=== PATIENT | male | born 1990 | race Caucasian/White ===

== ENCOUNTER 2017-10-27 05:15 | Emergency (ER) | payer OTHER ==
[~2017-10-27 05:15] MED LIST: BACTRIM,SEPT1 TABLET PO; BP Medication PO; FLEXERIL10 MG PO; MOTRIN800 MG PO; NAPROSYN500 MG PO; NAPROXEN250 MG PO; ULTRACET1 TABLET PO; [UNRECOGNIZED DRUG - OTHER]
[2017-10-27 05:40] LABS: BASOPHIL (%) 0.5 % (0-1); BASOPHIL COUNT 0.1 K/uL (0-0.1); EOSINOPHIL (%) 0.9 % (0-5); EOSINOPHIL COUNT 0.1 K/uL (0-0.3); HEMOGLOBIN 14.5 G/DL (12.5-16.6); IMMATURE GRANULOCYTE (%) 4.9 % (0.0-0.7); LYMPHOCYTE (%) 45.1 % (15-42); LYMPHOCYTE COUNT 4.3 K/uL (1.0-2.8); MCH 29.1 PG (29.0-34.0); MCHC 31.5 G/DL (30.0-36.0); MCV 92.4 FL (86-99); MONOCYTE (%) 3.4 % (3-12); MONOCYTE COUNT 0.3 K/uL (0-0.8); NEUTROPHIL (%) 45.2 % (45-76); NEUTROPHIL COUNT 4.3 K/uL (1.8-6.4); PLATELET COUNT 216 K/uL (156-360); RBC DIS.WIDTH-CV 12.6 % (11.8-14.6); RBC DIS.WIDTH-SD 42.6 % (39-53); RED BLOOD COUNT 4.98 M/uL (4.00-5.50); WHITE BLOOD COUNT 9.5 K/uL (4.1-10.2)
[2017-10-27 05:48] LABS: INTER. NORMALIZED RATIO 1.1
[2017-10-27 05:53] LABS: AMYLASE 68 IU/L (1-118)
[2017-10-27 05:54] LABS: CHLORIDE 100 mEq/L (99-109); SODIUM 155 mEq/L (136-147)
[2017-10-27 05:58] LABS: SERUM ETHYL ALCOHOL < 10 mg/dL
[2017-10-27 05:59] LABS: CREATININE 1.6 mg/dL (0.6-1.3); GFR ESTIMATE (CALCULATED) 55 mL/min/ (58.99-99999)
[2017-10-27 06:00] LABS: UREA NITROGEN (BUN) 9 mg/dL (9-23)
[2017-10-27 06:02] LABS: LIPASE 59 U/L (1.0-51.0)
[2017-10-27 06:08] LABS: TROP-I INTERPRETATION NEGATIVE; TROPONIN-I 0.08 ng/mL (0.0-0.30)
[2017-10-27 06:14] LABS: GLUCOSE 423 mg/dL (70-99); POTASSIUM 6.9 mEq/L (3.7-5.4)
== END 2017-10-27 05:33 ==
LOC: EME 05:15 → EDBD 05:15 → EME 05:15
PROVIDERS: Emergency Medicine
DX: I46.9 Cardiac arrest, cause unspecified (principal); E87.2 Acidosis; F10.99 Alcohol use, unspecified with unspecified alcohol-induced disorder; F11.90 Opioid use, unspecified, uncomplicated
CPT/HCPCS: 31500; 80048; 81003; 82150; 83605; 83690; 84484; 85025; 85610; 85730; 86850; 86900; 86901; 87040; 92950; 99281; 99285; G0480; J2310